=== PATIENT | male | born 1975 | race Two or more races ===

== ENCOUNTER 2020-02-06 02:24 | Emergency (ER) | payer OTHER ==
[~2020-02-06] VITALS: Ht 188 cm; Wt 111.1 kg
[2020-02-06 02:26] VITALS: Ht 188 cm; Wt 111.1 kg
[2020-02-06 03:09] VITALS: BP 174/133
== END 2020-02-06 03:09 | disposition other institution (70) ==
LOC: ED 02:24
DX: I10 Essential (primary) hypertension (principal); Z13.9 Encounter for screening, unspecified

== ENCOUNTER 2020-02-06 02:24 | Emergency (ER) | payer OTHER | END 2020-02-06 03:09 | disposition other institution (70) | LOC: ED 02:24 | DX: Z02.89 Encounter for other administrative examinations (principal) ==